=== PATIENT | female | born 1980 | race Caucasian/White ===

== ENCOUNTER → 2023-09-18 09:32 | Outpatient (CLI) | payer OTHER, SELFPAY ==
--- NOTE | ~2023-09-18 | CT_ITS ---
Clinical Indication: Paroxysmal dyspnea CT Scan of the Chest with Contrast: Technique: Contiguous sections were acquired throughout the chest after intravenous administration of 100 cc of Omnipaque 350. Dose reduction technique was used on this scan by utilizing automated expos ure control and iterative reconstruction technique. The dose-length product (DLP) was 467.80 mGy-cm. Findings: There is no evidence of any significant mediastinal, hilar or axillary lymphadenopathy. There is no f illing defect in the pulmonary arterial tree to suggest pulmonary embolus. There is no evidence of ao rtic dissection or aneurysm. There is no evidence of pleural or pericardial effusion. There is mild patchy groundglass opacity in the left lower lobe (axial images 6171), consistent with pneumonia. Remainder of lungs are clear. Images through the upper abdomen reveal cholelithiasis. Impression: No evidence of pulmonary embolus, aortic dissection, or aortic aneurysm. Left lower lobe pneumonia, as detailed above. Cholelithiasis. Reviewed, dictated and finalized at [facility]. [employer] Impression: No evidence of pulmonary embolus, aortic dissection, or aortic aneurysm. Left lower lobe pneumonia, as detailed above. Cholelithiasis.
== END ==
PROVIDERS: PCP Physician Assistant; Visit Provider Physician Assistant
DX: R06.00 Dyspnea, unspecified (principal); J18.9 Pneumonia, unspecified organism; K80.20 Calculus of gallbladder without cholecystitis without obstruction
CPT/HCPCS: 71275; Q9967

== ENCOUNTER 2024-03-26 09:14 | Outpatient (CLI) | payer OTHER, SELFPAY ==
--- NOTE | ~2024-03-26 | MR_ITS ---
EXAMINATION: MR shoulder RT wo con DATE: 03/26/2024 09:56 INDICATION: Right shoulder pain TECHNIQUE: Magnetic resonance imaging (MRI) of the right shoulder was performed without intravenous c ontrast. Sequences included axial PD-weighted FS FSE, coronal oblique PD-weighted FS FSE, coronal obl ique T2-weighted FS FSE, sagittal PD-weighted FS FSE, and sagittal T1-weighted SE. COMPARISON: None. FINDINGS: Coracoacromial arch: The acromion undersurface is curved in morphology (type II). The coracoacromial ligament is normal. M ild acromioclavicular osteoarthritis. Rotator cuff: Moderate supraspinatus tendinopathy with bursal sided fraying without a discrete tear defect. The inf raspinatus, teres minor and subscapularis tendons are normal. Normal rotator cuff muscle bulk and sig nal. Biceps tendon, glenoid labrum and glenohumeral cartilage: Long head of the biceps tendon is normal. Glenoid labrum is normal with normal small anterosuperior s ublabral foramen. Glenohumeral cartilage is normal. Fluid: Physiologic amount of fluid in the glenohumeral joint and biceps tendon sheath. No loose osteochondr al bodies. Small amount of fluid and synovitis in the subacromial/subdeltoid bursa consistent with mi ld to moderate bursitis. Bones: Bone alignment is normal. No fracture or pathologic marrow replacing process. Minimal edema-like sign al change consistent with a small erosion along the superior facet footplate of the supraspinatus ten don. IMPRESSION: 1. Moderate supraspinatus tendinopathy with some bursal sided fraying but without discrete tear defec t. 2. Mild to moderate subacromial/subdeltoid bursitis. Reviewed, dictated and finalized at [facility]. IMPRESSION: 1. Moderate supraspinatus tendinopathy with some bursal sided fraying but witho ut discrete tear defect. 2. Mild to moderate subacromial/subdeltoid bursitis.
== END 2024-03-26 09:15 ==
LOC: GOSHIMG 09:14
PROVIDERS: PCP Physician Assistant; Visit Provider Physician Assistant
DX: M75.51 Bursitis of right shoulder (principal)
CPT/HCPCS: 73221

== ENCOUNTER 2024-06-23 17:11 | Emergency (ER) | payer OTHER, SELFPAY ==
--- NOTE | 2024-06-23 17:15 | ED.GENADULT ---
HPI - General Adult General Chief complaint: Wound/Laceration Stated complaint: Injured Right Foot Time Seen by Provider: 06/23/24 17:40 Source: patient, RN notes reviewed and old records reviewed Mode of arrival: ambulatory Limitations: no limitations History of Present Illness HPI narrative: 43-year-old female presents to the [facility] stepping on a nail. Patient states they are having their roof replaced and stepped on a nail that went through her flip flop into her foot. Had cleaned it with hydrogen peroxide prior to arrival Patient in no acute distress Unknown last Tdap, Requesting updated Tdap Related Data Home Medications Medication Instructions Recorded Confirmed tirzepatide 10 mg/0.5 mL 10 mg subcut WEEKLY 06/23/24 06/23/24 subcutaneous pen injector (Penny) Allergies Allergy/AdvReac Type Severity Reaction Status Date / Time No Known Drug Allergies Allergy Mild Other Verified 06/23/24 18:39 Review of Systems Review of Systems: All systems reviewed & are unremarkable except as noted in HPI and below Constitutional: Constitutional: Reports no additional constitutional complaints Eyes: Eyes: Reports no additional eye complaints ENT: Reports system reviewed and no additional complaints, except as documented Cardiovascular: Cardiovascular: Reports no additional cardiovascular complaints, Denies chest pain and Denies dyspnea Respiratory: Respiratory: Reports no additional respiratory complaints, Denies chest congestion, Denies cough and Denies dyspnea Gastrointestinal: Gastrointestinal: Reports no additional gastrointestinal complaints, Denies abdominal pain, Denies nausea and Denies vomiting Musculoskeletal: Musculoskeletal: Reports no additional musculoskeletal complaints Integumentary/Breasts: Skin/Breast: Reports as per HPI Neurologic: Reports system reviewed and no additional complaints, except as documented Psychiatric: Psychiatric: Reports no additional psychiatric complaints Allergic/Immunologic: Allergic/Immunologic: Reports no additional allergic/immunologic complaints [facility] Family History Family History Mother Patient's mother is in good health Father Patient's father is in good health Sibling Patient's brother is in good health Other Family history of malignant neoplasm of esophagus Social History Social History Smoking end date: 10/08/03 Alcohol intake: current Comments At the time of my signature, I reviewed and agree with the nursing past medical, surgical, social, and family history. There is no relevant family history pertinent to the patient complaint. Exam Const: General: cooperative, healthy appearing, comfortable, no acute distress, well developed, alert and well nourished Nutritional Appearance: well nourished Orientation/consciousness: patient oriented x3 Limitations: no limitations HENMT: Head: normal to inspection Ears: hearing grossly normal bilaterally and external ears normal Face/Nose/Sinus: Normal external nose present, Normal nares present, Normal nasal mucous membranes and turbinates present, normal facial exam and face symmetric Face and sinus: normal facial exam and face symmetric Eyes: General: appearance normal, both eyes and all related structures Alignment and Position: alignment normal Periorbital: periorbital findings normal Neck: Neck: normal visual inspection, full ROM, no lymphadenopathy and no meningeal signs Chest: Chest palpation & inspection: normal inspection of the chest Resp: Effort & Inspection: normal respiratory effort and able to speak in complete sentences Cardio: Rate: regular rate Skin: General skin exam: normal color and no rashes or lesions noted Lesions: no lesions Rashes: no rashes Trauma: no lacerations or abrasions Other: Puncture wound right mid plantar aspect foot Neuro: General: pa
[2024-06-23 17:17] VITALS: BP 114/93; PULSE 68; RESP 16; TEMP 36.8; O2SAT 100
[2024-06-23] MEDS: TETANUS,DIPHTHERIA,AC PERTUSSIS ADULT (0.5 ML) BOOSTRIX IM (18:00)
== END 2024-06-23 18:05 | disposition home or self-care (01) ==
PROVIDERS: Emergency Provider Nurse Practitioner; PCP Physician Assistant
DX: S91.331A Puncture wound without foreign body, right foot, initial encounter (principal); W45.0XXA Nail entering through skin, initial encounter; Z23 Encounter for immunization
CPT/HCPCS: 90471; 90715; 99213; G0463